=== PATIENT | female | born 1940 | race Caucasian/White ===

== ENCOUNTER → 2020-05-21 | Outpatient (CLI) | payer OTHER ==
[~2020-05-21] MED LIST: ADULT LOW DOSE81 MG PO; ADULT WAL-100 MG/5 M PG; ASPIRIN325; ASPIRIN325 OR; ASPIRIN325 PO; CARDIZEM CD240 MG PO; COUMADIN 5 MG TA5 M1; COUMADIN 5 MG TA5 M1 PO; COUMADIN7.5 MG PO; DIFLUCAN IV; DOCUSATE SODIU100 MG PO; DUONEB 2.5-0.5 M3 ML; DUONEB 2.5-0.5 M3 ML INH; DYAZIDE; EFFEXOR OR; EFFEXOR PO; EFFEXOR XR150 MG PO; ESTRACE0.5 MG PO; FLECAINIDE ACET50 M1 PO; HEPARIN SO5000 UNIT2 IV; HYZAAR 50-12.51 EACH PO; LASIX 40 MG TAB40 M2 PO; LEVOTHYROXINE0.05 MG IV; LIPITOR20 MG; LORAZEPAM 2MG2 MG/M1 IV; LOVENOX SQ; MAXZIDE 75-501 EACH PO; MAXZIDE-25 MG1 EACH; MAXZIDE-25 MG1 EACH PO; MOBIC15 MG PO; MULTAG PO; MULTAQ400 MG PO; NEURONTIN 300300 M1 PO; NORCO 10-325 T1 EACH PO; NUVIGIL PO; PACERONE 200 M200 M1 PO; PEPCID IV; POTASSIUM20 PO; ROBAXIN 750 MG750 M1 PO; SIMVASTATIN20 MG PO; SIMVASTATIN40 MG PO; TRIAMTERENE-HC1 EAC3 PO; TYLENOL325 MG PO; VENLAFAXIN75 MG/1 T2 PO; XANAX 0.5 MG0.5 M1; [UNRECOGNIZED DRUG - OTHER]
== END ==
LOC: SJCVC 10:04
PROVIDERS: ATTEND Internal Medicine Cardiovascular Disease
DX: I45.4 Nonspecific intraventricular block (principal); I49.3 Ventricular premature depolarization; R94.31 Abnormal electrocardiogram [ECG] [EKG]; I48.91 Unspecified atrial fibrillation; I42.0 Dilated cardiomyopathy; I50.22 Chronic systolic (congestive) heart failure; I50.20 Unspecified systolic (congestive) heart failure; I44.7 Left bundle-branch block, unspecified; I48.21 Permanent atrial fibrillation; Z88.0 Allergy status to penicillin; Z88.5 Allergy status to narcotic agent; Z88.1 Allergy status to other antibiotic agents; Z79.01 Long term (current) use of anticoagulants; Z79.899 Other long term (current) drug therapy; Z87.891 Personal history of nicotine dependence

== ENCOUNTER → 2020-07-28 | Outpatient (CLI) | payer OTHER | LOC: RAD 13:23 | PROVIDERS: ATTEND Family Medicine | DX: S92.352A Displaced fracture of fifth metatarsal bone, left foot, initial encounter for closed fracture (principal); M19.072 Primary osteoarthritis, left ankle and foot; M79.89 Other specified soft tissue disorders; X58.XXXA Exposure to other specified factors, initial encounter; Y93.89 Activity, other specified; Y92.89 Other specified places as the place of occurrence of the external cause; Y99.8 Other external cause status ==